=== PATIENT | female | born 1965 | race Two or more races ===

== ENCOUNTER 2017-08-10 17:23 | Emergency (ER) | payer OTHER ==
[~2017-08-10] VITALS: Ht 167.6 cm; Wt 77.1 kg
[2017-08-10 17:52] LABS: BASO % 0 % (0-3); BILIRUBIN,URINE NEGATIVE (NEG); EOS % 3 % (0-3); GLUCOSE,URINE NEGATIVE (NEG); HEMATOCRIT 39.7 % (36.0-47.0); HEMOGLOBIN 13.2 g/dL (12.0-15.5); LYMPH # 2.3 x10^3/uL (1.0-4.8); LYMPH % 35 % (24-48); MEAN CORPUSCULAR HEMOGLOBIN 29 pg (25-35); MEAN CORPUSCULAR HGB CONC 33 g/dL (31-37); MEAN CORPUSCULAR VOLUME 88 fL (79-100); MONO % 7 % (0-9); NEUT % 56 % (31-73); NITRITE,URINE NEGATIVE (NEG); PH,URINE 6.5; PLATELET COUNT 375 x10^3/uL (140-400); PROTEIN,URINE NEGATIVE (NEG-TRACE); RED BLOOD COUNT 4.53 x10^6/uL (3.50-5.40); RED CELL DISTRIBUTION WIDTH 13.3 % (11.5-14.5); UROBILINOGEN,URINE 0.2 mg/dL (0.2 mg/dL); WHITE BLOOD COUNT 6.7 x10^3/uL (4.0-11.0)
[2017-08-10 18:00] LABS: BACTERIA,URINE 0 /HPF (0-FEW); SQUAMOUS EPITHELIAL CELL,UR OCC /LPF; WBC,URINE 0 /HPF (0-4)
[2017-08-10] MEDS ORDERED: IOHEXOL 300 MG/ML 100ML VIAL. IV ONE (18:00)
[2017-08-10 18:03] LABS: CALCIUM 8.9 mg/dL (8.5-10.1); CREATININE 0.8 mg/dL (0.6-1.0); GFR 75.3; POTASSIUM 3.5 mmol/L (3.5-5.1)
[2017-08-10 18:11] LABS: ALBUMIN 4.2 g/dL (3.4-5.0); ALBUMIN/GLOBULIN RATIO 1.2 (1.0-1.7); TOTAL BILIRUBIN 0.4 mg/dL (0.2-1.0); TOTAL PROTEIN 7.7 g/dL (6.4-8.2)
[2017-08-10] MEDS ORDERED: CONTRAST GIVEN MC PRN (18:15)
--- NOTE | 2017-08-10 18:55 | PHYS DOC ---
Past Medical History Past Medical History: No Pertinent History Past Surgical History: Alcohol Use: None Drug Use: None Adult General Chief Complaint Chief Complaint: ABDOMINAL PAIN HPI HPI Patient is a 52 year old F who presents with right-sided abdominal pain since last Tuesday. Patient went to her PCP today for an evaluation any center to the emergency room for further workup. Patient denies any fevers. Patient states she 's had lost appetite secondary to the pain. Patient states the pain radiates to her back. Patient denies any nausea or vomiting. She denies any dysuria. Patient has no other complaints. Review of Systems Review of Systems GEN: Denies fevers, chills, sweats HEENT: Denies blurred vision, sore throat CV: Denies chest pain RESP: Denies shortness of air, cough GI: Abdominal pain NEURO: Denies confusion, dizziness MSK: Denies weakness, joint pain/swelling All other systems were reviewed and found to be within normal limits, except as documented in this note. Current Medications Current Medications Current Medications Medications (Trade) Dose Ordered Sig/Keli Start Time Stop Time Status Last Admin Dose Admin Info (Do NOT chart on this entry -- for MONITORING) 1 each PRN DAILY PRN 08/10/17 18:15 08/12/17 18:14 Iohexol (Omnipaque 300 Mg/ml) 75 ml 1X ONCE 08/10/17 18:00 08/10/17 18:02 DC 08/10/17 18:21 75 ML Allergies Allergies Allergies Coded Allergies Type Severity Reaction Last Updated Verified No Known Drug Allergies 08/10/17 No Physical Exam Physical Exam GEN.: Mild distress. Alert and oriented. HEENT: Head is normocephalic, atraumatic NECK: Supple. LUNGS: CTAB. HEART: RRR, S1, S2 present. Peripheral pulses intact ABDOMEN: Soft, tenderness palpation right lower quadrant, no rebound tenderness, no guarding, no abdominal distention. Positive bowel sounds. EXTREMITIES: Without any cyanosis. NEUROLOGIC: Normal speech, normal tone PSYCHIATRIC: Normal affect, normal mood. SKIN: No ulcerations Current Patient Data Vital Signs Vital Signs Date Time Temp Pulse Resp B/P (MAP) Pulse Ox O2 Delivery O2 Flow Rate FiO2 08/10/17 21:47 58 16 113/62 (79) 100 Room Air 08/10/17 17:27 98.4 98.4 Lab Values Laboratory Tests Test 08/10/17 17:45 White Blood Count 6.7 x10^3/uL (4.0-11.0) Red Blood Count 4.53 x10^6/uL (3.50-5.40) Hemoglobin 13.2 g/dL (12.0-15.5) Hematocrit 39.7 % (36.0-47.0) Mean Corpuscular Volume 88 fL (79-100) Mean Corpuscular Hemoglobin 29 pg (25-35) Mean Corpuscular Hemoglobin Concent 33 g/dL (31-37) Red Cell Distribution Width 13.3 % (11.5-14.5) Platelet Count 375 x10^3/uL (140-400) Neutrophils (%) (Auto) 56 % (31-73) Lymphocytes (%) (Auto) 35 % (24-48) Monocytes (%) (Auto) 7 % (0-9) Eosinophils (%) (Auto) 3 % (0-3) Basophils (%) (Auto) 0 % (0-3) Neutrophils # (Auto) 3.7 x10^3uL (1.8-7.7) Lymphocytes # (Auto) 2.3 x10^3/uL (1.0-4.8) Monocytes # (Auto) 0.4 x10^3/uL (0.0-1.1) Eosinophils # (Auto) 0.2 x10^3/uL (0.0-0.7) Basophils # (Auto) 0.0 x10^3/uL (0.0-0.2) Urine Collection Type Unknown Urine Color Yellow Urine Clarity Clear Urine pH 6.5 Urine Specific [place] <=1.005 Urine Protein Negative mg/dL (NEG-TRACE) Urine Glucose (UA) Negative mg/dL (NEG) Urine Ketones (Stick) Negative mg/dL (NEG) Urine Blood Moderate (NEG) Urine Nitrite Negative (NEG) Urine Bilirubin Negative (NEG) Urine Urobilinogen Dipstick 0.2 mg/dL (0.2 mg/dL) Urine Leukocyte Esterase Negative (NEG) Urine RBC 6-10 /HPF (0-2) Urine WBC 0 /HPF (0-4) Urine Squamous Epithelial Cells Occ /LPF Urine Bacteria 0 /HPF (0-FEW) Sodium Level 139 mmol/L (136-145) Potassium Level 3.5 mmol/L (3.5-5.1) Chloride Level 101 mmol/L (98-107) Carbon Dioxide Level 31 mmol/L (21-32) Anion Gap 7 (6-14) Blood Urea Nitrogen 12 mg/dL (7-20) Creatinine 0.8 mg/dL (0.6-1.0) Estimated GFR (Cockcroft-Gault) 75.3 BUN/Creatinine Ratio 15 (6-20) Glucose Level 97 mg/dL (70-99) Calcium Level 8.9 mg/dL (8.5-10.1) Total Bilirubin 0.4 mg/dL (0.2-1.0) Aspartate Amino Transferase (AST) 26 U/L (15-37) Alanine Aminotransferase (ALT) 28 U/L (14-59) Alkaline Phosphatase 64 U/L (46-116) Total Protein 7.7 g/dL (6.4-8.2) Albumin 4.2 g/dL (3.4-5.0) Albumin/Globulin Ratio 1.2 (1.0-1.7) Lipase 88 U/L (73-393) Laboratory Tests 08/10/17 17:45 Laboratory Tests 08/10/17 17:45 EKG EKG [] Radiology/Procedures Radiology/Procedures US: Impression: Cholelithiasis. No evidence of acute cholecystitis. CT abdomen and pelvis Impression: Cholelithiasis without evidence of acute cholecystitis. No acute findings. [] Course & Med Decision Making Course & Med Decision Making Pertinent Labs and Imaging studies reviewed. (See chart for details) ED course: Patient was seen and examined emergency room abdominal lab work and CT scan abdomen pelvis was ordered CT scan showed gallstones with no evidence of acute cholecystitis therefore an ultrasound was ordered Ultrasound shows no acute cholecystitis however cholelithiasis Patient was updated on lab results and CT results and ultrasound results and recommended she follow up with her PCP for further evaluation and management of her gallbladder. Recommended outpatient HIDA scan MDM: After reviewing the chart, CC/HPI/PMH, physical exam, [lab results], [ radiological results], I do not believe the patient has an intra-abdominal emergency warranting further workup and/or admission at this time. I believe the patient has no other colic and is stable for discharge. Additional verbal discharge instructions were provided to the patient and that if symptoms get worse or any new symptoms arise that are worrisome to the patient she is to return to the emergency room immediately [] Dragon Disclaimer Dragon Disclaimer This electronic medical record was generated, in whole or in part, using a voice recognition dictation system. Departure Departure Impression: Primary Impression: Biliary colic Additional Impressions: Cholelithiasis Abdominal pain Disposition: HOME, SELF-CARE Condition: IMPROVED Referrals: ROMAN CARLISLE (PCP) Patient Instructions: Abdominal Pain, Biliary Colic Additional Instructions: Please follow-up with your family physician in the next one to 2 days and return if symptoms increase Problem Qualifiers JANY BUNN DO Aug 10, 2017 18:55
--- NOTE | 2017-08-10 19:02 | RAD ---
CT SCAN OF THE ABDOMEN AND PELVIS WITH IV CONTRAST. History: Abdominal pain Comparison:None. Procedure: Contiguous axial images of the abdomen and pelvis were performed after the administration of 75 cc of Omni 300 IV contrast and without oral contrast. CT Abdomen with contrast: Findings: Liver: Unremarkable Spleen: Unremarkable Pancreas: Unremarkable Adrenal Glands: Unremarkable Kidneys: Unremarkable There is no mass or lymphadenopathy. There is no free air. There is no free fluid. There is multiple tiny stones in the gallbladder but no wall thickening or surrounding inflammation. CT Pelvis with Contrast: Findings: The urinary bladder appears normal. There is no free fluid. There is no lymphadenopathy. The uterus appears within normal limits. The ovaries are normal seen and likely small. The appendix is not well seen but appears normal. Impression: Cholelithiasis without evidence of acute cholecystitis. No acute findings. PQRS Compliance Statement: One or more of the following individualized dose reduction techniques were utilized for this examination: 1. Automated exposure control 2. Adjustment of the mA and/or kV according to patient size 3. Use of iterative reconstruction technique Electronically signed by: Troy Vega III, MD (08/10/2017 6:57 PM) [facility]
--- NOTE | 2017-08-10 21:28 | RAD ---
Clinical History: Right-sided abdominal pain Technique: Sonographic examination of the right upper quadrant of the abdomen was performed and multiple static images were obtained. Comparison: none Findings: The majority of the liver is visualized and appears homogeneous. The common bile duct appears normal and measures 5.8 mm in diameter. The gallbladder is seen with tiny mobile stones but no wall thickening surrounding fluid or tenderness. The pancreas is not well visualized due to overlying bowel gas but appears within normal limits. The right kidney appears normal and measures 12 cm in length. Impression: Cholelithiasis. No evidence of acute cholecystitis. Electronically signed by: Troy Vega III, MD (08/10/2017 9:24 PM) [facility]
[2017-08-10 21:59] VITALS: BP 115/57
--- NOTE | 2017-08-16 16:51 | HP ---
ADMIT DATE: 08/10/2017 HISTORY OF PRESENT ILLNESS: The patient is referred by Dr. Lazar because of symptomatic cholelithiasis. For six months on and on she has postprandial bloating, gas and abdominal pain. The pain appears to be mostly in the right upper quadrant and to the right flank and back. She does not have shoulder pain, has never had jaundice and has had nausea, but no real vomiting. This goes on and on and she cannot tell why. She has recently had a CT of the abdomen, which showed small gallstones and a sonogram showed gallstones with a normal common duct and extrahepatic biliary function and ducts. She therefore is referred to me. She does not speak Filipino, the conversation was very large, we did have an interrupted and we proceeded. PAST MEDICAL HISTORY: Shows normal childhood diseases. She does not have hypertension or any other diseases that she takes medicine for. She has had a section many years ago and has only had right, I think, ankle surgery for fracture. MEDICATIONS: Otherwise, she takes no medicine. ALLERGIES: She does not really have any allergies. FAMILY HISTORY: Shows gallstones in a sister, otherwise negative. SOCIAL HISTORY: She drinks only socially, not enough to get inebriated. Does not smoke or use illicit drugs. She does have 2 male children alive and well. PHYSICAL EXAMINATION: GENERAL: Shows an alert female, in no acute distress. HEAD, EYES, EARS, NOSE, THROAT: Grossly normal. CHEST: Clear bilaterally to auscultation. HEART: Had no murmurs, heaves, friction rubs or thrills and the rate was 74 beats per minute and it was regular. ABDOMEN: Soft, had a midline incision apparently from a done in the [place], was not a Pfannenstiel incision. She also has some pain to deep palpation at the right upper quadrant below the costal margin. There were no masses, no organomegaly, no tenderness as far as rebound or guarding. Bowel sounds were normal. There were no hernias or other abnormalities. EXTREMITIES: Grossly normal. IMPRESSION: Chronic cholecystitis and cholelithiasis. JOSE DIAZ MD DR: SYBIL/mor JOB#: [id number] / [id number]
== END 2017-08-10 22:25 | disposition home or self-care (01) ==
LOC: ER 17:23
DX: K80.20 Calculus of gallbladder without cholecystitis without obstruction (principal); K80.50 Calculus of bile duct without cholangitis or cholecystitis without obstruction
CPT/HCPCS: 36415; 74177; 76705; 80053; 81001; 83690; 85025; 99285; Q9967

== ENCOUNTER → 2021-01-27 | Outpatient (CLI) | payer BC, OTHER ==
--- NOTE | 2021-01-27 08:34 | RAD ---
US ABDOMEN COMPLETE: 01/27/2021 7:10 AM Indication: 55 years old Female. Epigastric pain, gallstones Comparison: None. TECHNIQUE: Sonographic evaluation of the abdomen is performed utilizing grayscale and color Doppler. FINDINGS: Liver: Homogenous normal echotexture.. There is hepatopedal flow within the portal venous system. Rig ht hepatic lobe measures 15.4 cm. Biliary system: CBD measures 3.8 mm. There is no intrahepatic or extrahepatic biliary dilatation. Gallbladder: Cholelithiasis without gallbladder wall thickening or pericholecystic fluid . Gallstones are mobile. Sonographic Porter sign: Negative Pancreas: Visualized head and uncinate process are unremarkable. Body and tail are not visualized. Spleen: 9.4 cm. Right kidney: 12.2 x 5.2 x 5.8 cm. No hydronephrosis. Normal echotexture without focal mass or renal calculus. Left kidney: 12.3 x 4.4 x 5.5 cm. Poorly visualized with lobulated contour. No hydronephrosis. Normal echotexture without focal mass or renal calculus. Abdominal aorta and IVC: Poorly visualized Free fluid:None. IMPRESSION: Cholelithiasis without sonographic evidence for acute cholecystitis. Limited evaluation of the kidneys without definite obstructive uropathy. Electronically signed by: Steff Aguila MD (01/27/2021 8:32 AM) [id number]
== END ==
LOC: US 06:35
PROVIDERS: ATTEND Internal Medicine
DX: K80.20 Calculus of gallbladder without cholecystitis without obstruction (principal)
CPT/HCPCS: 76700

== ENCOUNTER → 2021-07-02 | Outpatient (CLI) | payer BC ==
--- NOTE | 2021-07-02 10:26 | RAD ---
Study: MG Digital Screen 2d, Bilat Mammo History: Routine screening. Comparison: None. Technique: Routine 2D and 3D tomosynthesis digital mammogram views were obtained bilaterally. Interpr etation was assisted with the use of computer-aided detection. Findings: Breast Tissue Density C : The breasts are heterogeneously dense, which may obscure small masses. Two focal asymmetries/masses in the right breast and one on the left. On the right lower/outer quadra nt 8 cm from the nipple measuring 0.8 cm and at the inner/upper quadrant 11 cm from the nipple measur ing 1 cm. On the left, upper/inner quadrant 12 cm from the nipple measuring up to approximately 3.2 c m. These findings are saved as lopez images. A few microcalcifications on the right with benign morphol ogy such as a grouping of round calcifications laterally 5 cm from the nipple. IMPRESSION: Focal asymmetries/masses within both breasts, two on the right and one on the left, as described in t he body of the report and saved as lopez images. Spot compression diagnostic mammography is recommended for the abnormality on the left with subsequent ultrasound if deemed necessary. For the two abnormal ities on the right, proceeding directly with diagnostic ultrasound is recommended. BI-RADS Category 0: Incomplete: Need additional imaging evaluation. Patient information is entered into the reminder system with a target due date for the next screening mammogram. "Our facility is accredited by the [employer] Mammography Program." Electronically signed by: MIRIAM YUN MD (07/02/2021 10:24 AM) [id number]
== END ==
LOC: MAMMO 08:13
PROVIDERS: ATTEND Internal Medicine
DX: Z12.31 Encounter for screening mammogram for malignant neoplasm of breast (principal); N63.20 Unspecified lump in the left breast, unspecified quadrant; N63.10 Unspecified lump in the right breast, unspecified quadrant
CPT/HCPCS: 77067

== ENCOUNTER → 2021-07-30 | Outpatient (CLI) | payer BC ==
--- NOTE | 2021-07-30 17:40 | RAD ---
CLINICAL INDICATION: ABIGAIL MOTA, who is 56 years of age, presents for further evaluation of a fi nding noted on her most recent screening mammographic examination. On that examination indeterminate asymmetry/masses were reported within both breasts COMPARISON: Prior mammographic imaging dating back to 07/02/2021 TECHNIQUE: Diagnostic views of both breasts were obtained, utilizing digital technique. BREAST COMPOSITION: The breast tissue is heterogenously dense, which could obscure detection of small masses. MAMMOGRAM FINDINGS: Spot compression views demonstrate partial effacement of the asymmetries bilaterally. However given t he persistence, ultrasound was performed. ULTRASOUND FINDINGS: Targeted ultrasound of the mammographic area of concern was performed bilaterally. Parenchymal tissue of normal echotexture is present in the regions of suspected mammographic abnormal ities. IMPRESSION: 1. Bilateral probably benign asymmetry for which short-term imaging follow-up is recommended. RECOMMENDATION: In the absence of new clinical symptoms or change in physical exam, short term follow up diagnostic e xamination is recommended in 6 months to assess for interval stability. Imaging to include spot compr ession views and ultrasound. BIRADS 3: PROBABLY BENIGN Electronically signed by: Galileo Herman MD (07/30/2021 5:37 PM) [id number]
== END ==
LOC: MAMMO 08:35
PROVIDERS: ATTEND Internal Medicine
DX: R92.8 Other abnormal and inconclusive findings on diagnostic imaging of breast (principal)
CPT/HCPCS: 77065; 76641-50